=== PATIENT | male | born 1970 | race Caucasian/White ===

== ENCOUNTER 2018-01-13 21:51 | Inpatient (IN) | payer OTHER ==
[2018-01-13 23:56] LABS: Troponin I 0.388 ng/mL (< 0.028)
[2018-01-13] MEDS ORDERED: Enoxaparin Sodium 100 MG/ML SYRINGE ONE (23:57)
[2018-01-14] MEDS ORDERED: Enoxaparin Sodium 40 MG/0.4 ML SYRINGE SC SCH ×2 (00:30→11:00)
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
[2018-01-14] MEDS: Nitroglycerin 0.4 MG TAB (25 Tab Bottle) SL PRN ×5 (01:28→10:41)
[2018-01-14] MEDS ORDERED: Fentanyl 100 MCG/2 ML VIAL SLOW IVP PRN (01:30)
[2018-01-14 02:25] VITALS: BMI 27.6
[2018-01-14 02:59] LABS: #Basophils 0.1 thou/uL (0.0-0.2); #Eosinphils 0.3 thou/uL (0.0-0.7); #Lymphocytes 3.8 thou/uL (1.20-3.40); #Monocytes 0.7 thou/uL (0.11-0.59); %Eosinophils 3.3 % (0.0-10.0); %Lymphocytes 42.9 % (21.0-51.0); %Monocytes 7.8 % (0.0-10.0); Hemoglobin 14.1 g/dL (14.0-18.0); Mean Corpuscular Hemoglobin 32.5 pg (27.0-31.0); Mean Corpuscular Volume 90.4 fL (78.0-98.0); Mean Platelet Volume 6.9 fL (7.4-10.4); Platelet Count 206 thou/uL (130-400); RBC Distribution Width 12.1 % (11.5-14.5); Red Blood Cell (RBC) Count 4.34 mill/uL (4.70-6.10); White Blood Cell (WBC) Count 8.8 thou/uL (4.8-10.8)
[2018-01-14 03:28] LABS: Anion Gap 13 mmol/L (10-20); BUN (Urea Nitrogen) 12 mg/dL (8.9-20.6); Calc. Creatinine Clearance 95 mL/min (70-130); Calcium 9.4 mg/dL (7.8-10.44); Carbon Dioxide 25 mmol/L (22-29); Chloride 105 mmol/L (98-107); Estimated GFR-MDRD 69; Glucose 97 mg/dL (70-105); Potassium 4.2 mmol/L (3.5-5.1); Sodium 139 mmol/L (136-145); Troponin I 0.748 ng/mL (< 0.028)
--- NOTE | 2018-01-14 05:20 | PDOC.FM ---
- Subjective Subjective: Patient still has residual chest pressure, improved from admission-no longer radiates. No SOB but currently on 2LPM via NC. Overnight O2 wean he desatted to 88%. - Objective Vital Signs & Weight: Vital Signs (12 hours) Temp Pulse Resp BP BP Pulse Ox 01/14/18 04:00 97.6 F 65 18 117/74 95 01/14/18 02:25 97.7 F 88 18 01/14/18 02:01 96 01/14/18 02:00 90 L 01/14/18 01:44 88 18 115/67 01/14/18 01:39 79 116/63 01/14/18 01:33 95 111/77 01/14/18 01:28 97.7 F 73 22 H 132/77 96 Weight Weight 84.867 kg I&O: 01/12/18 01/13/18 01/14/18 06:59 06:59 06:59 Intake Total 120 Balance 120 Result Diagrams: 01/14/18 02:51 01/14/18 02:51 <Gracy Vela - Last Filed: 01/14/18 14:26> - Objective Vital Signs & Weight: Vital Signs (12 hours) Temp Pulse Resp BP BP BP Pulse Ox 01/15/18 09:03 98 103/68 01/15/18 08:00 96.1 F L 98 16 103/68 99 01/15/18 04:34 97.6 F 69 14 101/64 96 Weight Weight 84.867 kg I&O: 01/14/18 01/15/18 01/16/18 06:59 06:59 06:59 Intake Total 120 Balance 120 Result Diagrams: 01/15/18 05:01 01/15/18 05:01 <Candelario Denney A - Last Filed: 01/15/18 12:33> Phys Exam - Physical Examination Constitutional: NAD HEENT: moist MMs Respiratory: no wheezing, no rales, no rhonchi, clear to auscultation bilateral Cardiovascular: RRR, no significant murmur chest pain not reproducible with palpation Gastrointestinal: soft, non-tender Psychiatric: A&O x 3 Skin: no rash, cap refill <2 seconds <Gracy Vela - Last Filed: 01/14/18 14:26> Dx/Plan (1) NSTEMI (non-ST elevated myocardial infarction) Code(s): I21.4 - NON-ST ELEVATION (NSTEMI) MYOCARDIAL INFARCTION Status: Acute - Plan Plan: 47 yo M s/p with LAD stent placement in 2016 here with NSTEMI 1. NSTEMI -Elevated troponins x3 -Cardiac consulted; aware of patient and plan to see in morning- await recommendations, kindly appreciated -Echo pending -Started on therapeutic lovenox 90 BID -Started on Aspirin and Nitro -Fentanyl for pain -Resumed home ACEI, Atorvastatin -Will hold coreg & plavix in case cardiology decides for stress test 2. Hypoxia 2/2 extensive tobacco use or hypoventilation -Ordered DDimer, if positive will consider ABG --> CTA -Ordered ICS due to patient improvement with deep inhalations while off of oxygen -Will continue to monitor O2 3. HTN -BPs stable -Contine lisinopril, hold coreg 4. CKD2 -S/P left nephrectomy from trauma -Creatinine and gfr at baseline, patient electrolytes stable, monitor for now Discussed with Dr. Denney who agrees with above plan <Gracy Vela - Last Filed: 01/14/18 14:26> (1) Atypical chest pain Code(s): R07.89 - OTHER CHEST PAIN Status: Acute (2) Hx of myocardial infarction Code(s): I25.2 - OLD MYOCARDIAL INFARCTION Status: Chronic (3) History of tobacco abuse Code(s): Z87.891 - PERSONAL HISTORY OF NICOTINE DEPENDENCE Status: Chronic <Candelario Denney - Last Filed: 01/15/18 12:33> Attending Addendum - Attending Addendum Date/Time: 01/15/18 1233 I personally evaluated the patient and discussed the management with Dr. Vela on 01/14/18. I agree with the History, Examination, Assessment and Plan documented above with any addition or exceptions noted below. <Candelario Denney - Last Filed: 01/15/18 12:33>
[2018-01-14] MEDS ORDERED: Atorvastatin Calcium 40 MG TAB PO SCH ×2 (05:45→21:00)
[2018-01-14 06:10] LABS: Troponin I 0.776 ng/mL (< 0.028)
[2018-01-14] MEDS ORDERED: Carvedilol 6.25 MG TAB PO SCH (08:00)
[2018-01-14] MEDS: Aspirin 325 MG TAB PO SCH (08:54)
[2018-01-14] MEDS: Lisinopril 2.5 MG TAB PO SCH (08:54)
[2018-01-14 09:32] LABS: Critical Call Chem Troponin I RESULT DECREASING; Troponin I 0.643 ng/mL (< 0.028)
[2018-01-14] MEDS ORDERED: Iopamidol 370 76% 50 ML VIAL FS ONE (10:13)
[2018-01-14] MEDS ORDERED: Iopamidol 370 76% 100 ML VIAL ONE (10:13)
[2018-01-14] MEDS ORDERED: Enoxaparin Sodium 100 MG/ML SYRINGE SC SCH (12:00)
[2018-01-14] MEDS ORDERED: Midazolam HCl 2 mg/2 ml Vial ONE (14:29)
[2018-01-14] MEDS ORDERED: Fentanyl 100 MCG/2 ML VIAL ONE (14:29)
[2018-01-14] MEDS ORDERED: Heparin 10,000 UNITS/1 ML VIAL ONE (14:52)
[2018-01-14] MEDS ORDERED: TICAGRELOR 90 MG TABLET ONE (14:53)
[2018-01-14] MEDS ORDERED: Sodium Chloride 0.9% 1,000 ML IV SCH (15:15)
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
--- NOTE | 2018-01-15 05:36 | PDOC.FM ---
- Subjective Subjective: No chest pain overnight. No complaints. - Objective MAR Reviewed: Yes Vital Signs & Weight: Vital Signs (12 hours) Temp Pulse Resp BP BP BP Pulse Ox 01/15/18 04:34 97.6 F 69 14 101/64 96 01/14/18 19:00 98.9 F 81 16 117/67 95 01/14/18 17:55 98.8 F 78 16 127/77 127/77 97 Weight Weight 84.867 kg I&O: 01/13/18 01/14/18 01/15/18 06:59 06:59 06:59 Intake Total 120 Balance 120 Result Diagrams: 01/15/18 05:01 01/15/18 05:01 EKG Reviewed by me: Yes <Gracy Vela - Last Filed: 01/15/18 20:46> - Objective Vital Signs & Weight: Weight Weight 84.867 kg Result Diagrams: 01/15/18 05:01 01/15/18 05:01 <Candelario Denney - Last Filed: 01/16/18 14:05> Phys Exam - Physical Examination Constitutional: NAD Respiratory: no wheezing, no rales Cardiovascular: RRR, no significant murmur no chest pain with palpation Psychiatric: normal affect, A&O x 3 Skin: normal turgor <Gracy Vela - Last Filed: 01/15/18 20:46> Dx/Plan (1) NSTEMI (non-ST elevated myocardial infarction) Code(s): I21.4 - NON-ST ELEVATION (NSTEMI) MYOCARDIAL INFARCTION Status: Acute (2) CKD (chronic kidney disease) stage 2, GFR 60-89 ml/min Code(s): N18.2 - CHRONIC KIDNEY DISEASE, STAGE 2 (MILD) Status: Chronic (3) HTN (hypertension) Code(s): I10 - ESSENTIAL (PRIMARY) HYPERTENSION Status: Chronic Qualifiers: Hypertension type: essential hypertension Qualified Code(s): I10 - Essential (primary) hypertension - Plan Plan: 47 yo M s/p with LAD stent placement in 2015 here with NSTEMI s/p cardiac cath 1. NSTEMI, s/p cardiac cath, occlusion of 1st obtuse marginal artery -Downtrending troponins -Pulse remained >70s all day today, plan to send home with coreg -Continue therapeutic lovenox 2. Diastolic CHF -Cardiac cath showed EF of 40% -Echo showed est. EF 35-40%, grade 1/3 diastolic function, mild mitral regurgitation -Currently pt. with no clinical signs of fluid overload -Last BP 101/64, will hold off on lasix for now due to low BP and concern for precipitating demand ischemia. Will consider adding on small dose if patient starts to show signs of fluid overload -Consider BNP, daily weights, I/Os 3. Intermittent hypoxia, resolved -Non-hypoxic on room air, continue use of ICS 4. HTN -BPs stable, lower end of normal -Contine lisinopril, hold coreg 5. CKD2 -Continue to monitor, stable Dispo: home today Discussed with Dr. Denney who agrees with above plan <Gracy Vela - Last Filed: 01/15/18 20:46> (1) Atypical chest pain Code(s): R07.89 - OTHER CHEST PAIN Status: Acute (2) Hx of myocardial infarction Code(s): I25.2 - OLD MYOCARDIAL INFARCTION Status: Chronic (3) History of tobacco abuse Code(s): Z87.891 - PERSONAL HISTORY OF NICOTINE DEPENDENCE Status: Chronic <Candelario Denney - Last Filed: 01/16/18 14:05> Attending Addendum - Attending Addendum Date/Time: 01/16/18 3519 I personally evaluated the patient and discussed the management with Dr. Vela. I agree with the History, Examination, Assessment and Plan documented above with any addition or exceptions noted below. <Candelario Denney - Last Filed: 01/16/18 14:05>
[2018-01-15 05:40] LABS: #Basophils 0.1 thou/uL (0.0-0.2); #Eosinphils 0.3 thou/uL (0.0-0.7); #Lymphocytes 3.2 thou/uL (1.20-3.40); #Monocytes 0.9 thou/uL (0.11-0.59); #Neutrophils 5.7 thou/uL (1.40-6.50); %Basophils 0.6 % (0.0-1.0); %Eosinophils 2.6 % (0.0-10.0); %Lymphocytes 31.6 % (21.0-51.0); %Monocytes 9.2 % (0.0-10.0); Hemoglobin 14.8 g/dL (14.0-18.0); Mean Corpuscular Hemoglobin 32.6 pg (27.0-31.0); Mean Corpuscular Volume 90.5 fL (78.0-98.0); Platelet Count 209 thou/uL (130-400); RBC Distribution Width 12.2 % (11.5-14.5); Red Blood Cell (RBC) Count 4.56 mill/uL (4.70-6.10); White Blood Cell (WBC) Count 10.1 thou/uL (4.8-10.8)
[2018-01-15 05:51] LABS: ALT (SGPT) 84 U/L (8-55); AST (SGOT) 39 U/L (5-34); Albumin 4.1 g/dL (3.5-5.0); Alkaline Phosphatase 79 U/L (40-150); Anion Gap 14 mmol/L (10-20); BUN (Urea Nitrogen) 11 mg/dL (8.9-20.6); Calc. Creatinine Clearance 93 mL/min (70-130); Calcium 9.6 mg/dL (7.8-10.44); Carbon Dioxide 25 mmol/L (22-29); Chloride 104 mmol/L (98-107); Estimated GFR-MDRD 67; Globulin 2.5 g/dL (2.4-3.5); Glucose 103 mg/dL (70-105); Potassium 3.7 mmol/L (3.5-5.1); Protein, Total 6.6 g/dL (6.0-8.3); Sodium 139 mmol/L (136-145)
[2018-01-15] MEDS ORDERED: Clopidogrel Bisulfate 75 MG TAB PO SCH (09:00)
[2018-01-15] MEDS: Lisinopril 2.5 MG TAB PO SCH (09:03)
[2018-01-15] MEDS: Aspirin 325 MG TAB PO SCH (09:05)
[2018-01-15 13:43] VITALS: BP 110/59; TEMP 97
== END 2018-01-15 14:45 | DRG 247 ==
LOC: ERS 21:51 → 2SW 01-14 01:28 → OBSVTOIN 01-14 01:28 → 2NO 01-14 17:59
PROVIDERS: ADMIT Family Medicine; ATTEND Family Medicine
PROC: 027034Z Dilation of Coronary Artery, One Artery with Drug-eluting Intraluminal Device, Percutaneous Approach (ICD-10-PCS; principal; 2018-01-14)
PROC: 4A023N7 Measurement of Cardiac Sampling and Pressure, Left Heart, Percutaneous Approach (ICD-10-PCS; 2018-01-14)
PROC: B2111ZZ Fluoroscopy of Multiple Coronary Arteries using Low Osmolar Contrast (ICD-10-PCS; 2018-01-14)
PROC: B2151ZZ Fluoroscopy of Left Heart using Low Osmolar Contrast (ICD-10-PCS; 2018-01-14)
DX: I21.4 Non-ST elevation (NSTEMI) myocardial infarction (principal); I13.0 Hypertensive heart and chronic kidney disease with heart failure and stage 1 through stage 4 chronic kidney disease, or unspecified chronic kidney disease; I50.30 Unspecified diastolic (congestive) heart failure; I25.10 Atherosclerotic heart disease of native coronary artery without angina pectoris; F17.210 Nicotine dependence, cigarettes, uncomplicated; N18.2 Chronic kidney disease, stage 2 (mild); R09.02 Hypoxemia; Z79.82 Long term (current) use of aspirin; I25.2 Old myocardial infarction; Z95.5 Presence of coronary angioplasty implant and graft; Z90.5 Acquired absence of kidney
CPT/HCPCS: 36415; 80048; 80053; 84484; 85025; 85347; 85379; 92928; 93005; 93010; 93306; 93458; 93798; 94760; 99152; 99153; A4216; C1769; C1874; C9600; J1644; J1650; J2250; J3010